=== PATIENT | male | born 1955 | race Caucasian/White ===

== ENCOUNTER 2023-12-03 21:26 | Inpatient (IN) | payer OTHER, MEDICARE, SELFPAY ==
[2023-12-03 17:52] VITALS: BP 134/94
[2023-12-03 18:12] VITALS: BMI 34.2
[2023-12-03 18:28] LABS: % Basophils 1.4 % (0-2); % Eosinophils 5.5 % (0-6); % Immature Granulocytes 0.4 % (0-0.5); % Lymphocytes 22.5 % (20.5-51.1); % Monocytes 9.3 % (1.7-9.3); % Neutrophils 60.9 % (42.2-75.2); Absolute Basophils 0.1 10^3/uL (0-0.2); Absolute Eosinophils 0.4 10^3/uL (0-0.7); Absolute Lymphocytes 1.8 10^3/uL (1.2-3.4); Absolute Monocytes 0.7 10^3/uL (0.1-0.6); Absolute Neutrophils 4.8 10^3/uL (1.4-6.5); Hematocrit 52.5 % (39.0-52.0); Hemoglobin 18.1 g/dL (13.0-18.0); Mean Corp Hgb Conc. 34.5 g/dL (33.0-37.0); Mean Corpuscular Hgb 27.5 pg (27.0-31.0); Mean Corpuscular Volume 79.8 fL (80.0-94.0); Mean Platelet Volume 8.5 fL (7.4-10.4); Nucleated Red Blood Cells % 0 % (-); Platelet Count 197 10^3/uL (130-400); Red Blood Cell Count 6.58 10^6/uL (4.70-6.10); Red Cell Dist. Width 13.3 % (11.5-14.5); White Blood Cell Count 7.9 10^3/uL (4.8-10.8)
[2023-12-03 18:41] LABS: ALT (SGPT) 41 U/L (0-50); AST (SGOT) 37 U/L (17-59); Albumin 4.7 g/dl (3.5-5.0); Alkaline Phosphatase 95 U/L (38-126); Blood Urea Nitrogen 30 mg/dl (9-20); Carbon Dioxide 22 mmol/L (22-30); Chloride 102 mmol/L (98-107); Estimated Creatinine Clearance 77 ml/min; Glucose 109 mg/dl (70-99); Potassium 4.3 mmol/L (3.5-5.1); Sodium 132 mmol/L (135-145); Total Bilirubin 1.3 mg/dl (0.2-1.3); Total Protein 7.6 g/dl (6.3-8.2); eGFR > 60.00
[2023-12-03 19:00] VITALS: BP 125/65
--- NOTE | 2023-12-03 19:39 | ED.GENMED ---
History of Present Illness
General
Chief Complaint: Visual Problem
Source: patient
Exam Limitations: none
Time Seen by Provider: 12/03/23 19:25
Travel History
Have you had any contact with someone who has COVID-19?: No
Do you have any symptoms of coronavirus? Fever > 100 degrees, chills, cough, shortness of breath, sore throat, loss of taste or smell, muscle aches, or headache?: No
History of Present Illness
History of Present Illness:
See MDM
Past History
Past History
ED Past Medical History: Asthma, Hypercholesterolemia and Other
ED Past Surgical History: Cardiac
Social History
Tobacco: Non-smoker
Alcohol: Former
Drug: None
Personal:
Phy Exam
Physical Exam
Physical Exam:
See MDM
Course
Orders/Labs/Results
Orders:
Orders
12/03/23 18:18
Electrocardiogram (*1) Urgent
Reason for Study: TIA/Stroke
12/03/23 18:19
EKG- Treatment ONCE
Complete Blood Count/With Diff Urgent
Comprehensive Metabolic Panel Urgent
12/03/23 19:38
CT Head W/o Iv Contrast Urgent
Comment:
Reason For Exam: intermittent double vision
Abnormal Lab Results
12/03/23
18:19
RBC 6.58 H 10^6/uL
(4.70-6.10)
Hgb 18.1 H g/dL
(13.0-18.0)
Hct 52.5 H %
(39.0-52.0)
MCV 79.8 L fL
(80.0-94.0)
Absolute Monos (auto) 0.7 H 10^3/uL
(0.1-0.6)
Sodium 132 L mmol/L
(135-145)
BUN 30 H mg/dl
(9-20)
Glucose 109 H mg/dl
(70-99)
12/03/23 18:19
12/03/23 18:19
Vital Signs
Initial and Last Documented VS:
Initial Vital Signs
Temp Pulse Resp BP Pulse Ox
98.2 F 69 20 134/94 95
12/03/23 17:52 12/03/23 17:52 12/03/23 17:52 12/03/23 17:52 12/03/23 17:52
Last Documented Vital Signs
Temp Pulse Resp BP Pulse Ox
98.2 F 69 20 134/94 95
12/03/23 17:52 12/03/23 17:52 12/03/23 17:52 12/03/23 17:52 12/03/23 17:52
MDM/Problems Addressed
Differential Diagnosis Includes:
HPI and MDM Narrative:
68-year-old male presenting for evaluation of intermittent double vision. He has had 3 episodes in the past 3 weeks. He blamed the first episode on eyestrain after reading. It lasted for approximately 30 seconds. He had another episode a few
weeks later where he saw quadruple for approximately 2 minutes. Patient was driving earlier today and he noted the double vision again. It appeared to be monocular. Everything was okay when he covers his left eye. When he covers his right eye,
there was a vertical displacement. This lasted longer, approximately 4 minutes. He is unsure if it is related but he is noticing left leg dragging as he walks. The left side of his leg feels numb. He is unsure if this is all related to diabetic
complications patient is concerned because his history of diabetes and prior open heart surgery. He talk to his residential roofer who suggested he go to the emergency department to be evaluated for TIA. Patient currently symptom-free. Pt took 4 baby
aspirins today
Given the double vision and his prior medical history, will obtain CT head and ultimately admit
Physical exam
General: Well appearing and non-toxic
HEENT: protecting airway. Pupils equal reactive. EOMI
Neck: supple
CV: No evidence of cyanosis. Regular rate and rhythm
Resp: No accessory muscle use
Abd: Non-distended
Extremities: No deformities. No leg edema. Sensation grossly intact
Neuro: alert
Psych: Normal affect
Skin: Intact
Problems Addressed including Acute and Chronic Conditions affecting care:
1. Diplopia
Acuity: acute
Prognosis: stable
Details: Given his past medical history, will obtain CT head and ultimately admit to rule out TIA. Patient is high risk
Updates
CT head negative. Given his intermittent symptoms and his past medical history, will admit
Differential Diagnosis (but not limited to): TIA, diabetic neuropathy
Testing considered: Brain MRI but will obtain CT head for
Drug therapy (if applicable): OTC meds, please see d/c instruction regarding Rx drugs
Amount and/or Complexity of Data Reviewed
Clinical info obtained from: Patient
External data reviewed: N/A
Labs I independently reviewed (but not limited to): White blood cell count normal
Radiology: The CT scan was personally and independently reviewed. In addition, official CT report reviewed.
Pulse Ox: not hypoxic
EKG independently reviewed: sinus rhythm, left axis, no STEMI
Mechanical Design Engineer Facilities: Sinus rhythm
Critical Care: N/A
Risk of Complication:
Social Determinants of health: Good social support
Discussed with other providers: Hospitalist
Escalation of Care includes Admit/Obs: Given the concern for rolling TIAs, will admit
Occasional wrong word or 'sound a like' substitutions may have occurred due to the inherent limitations of voice recognition software. Read the chart carefully and recognize, using context, where substitutions have occurred.
*Critical Care Note
Total Time (30-74mins, 75-104mins- exclusive of procedures): Not Applicable
ED Attending Note
-
Portions of this chart may have been created with voice recognition software.� Occasional wrong word or��sound alike� substitutions may have occurred due to the inherent limitations of voice recognition software.
Discharge Plan
Departure
Patient Disposition: Admit
Date of Disposition: 12/03/23
Time of Disposition: 20:27
Admit to: Telemetry
Presentation/result/management discussed w/ accepting MD/DO: Hospitalist
Discharge Problem:
Diplopia
Prescriptions:
No Action
atorvastatin 10 MG tablet
10 mg PO HS
tamsulosin 0.4 MG capsule
0.4 mg PO HS
montelukast 10 MG tablet
10 mg PO DAILY
metoprolol succinate 25 MG tablet extended release 24 hr
25 mg PO DAILY
dutasteride [Avodart] 0.5 MG capsule
0.5 mg PO HS
Jardiance 10 MG tablet
10 mg PO DAILY
metformin 500 mg tablet
500 mg PO BID
aspirin 81 mg Tablet,Delayed Release (Dr/Ec)
81 mg PO DAILY
diphenhydramine HCl [Benadryl] 25 mg Capsule
25 mg PO HS
hydroxychloroquine 200 mg tablet
200 mg PO BID
Spiriva Respimat 2.5 mcg/actuation mist
1 puff INHALATION R DAILY
Referrals:
NONE,* [Family Provider] -
Interventions
Interventions:
*Risk Screen - Suicide Last Done: 12/03/23 18:13
*General Assessment Last Done: 12/03/23 18:13
*Neglect/Abuse Screening Last Done: 12/03/23 18:13
ED- Neurological Assessment Last Done: 12/03/23 18:13
ED-EENT Assessment Last Done: 12/03/23 18:13
ED Swallowing Screen Last Done: 12/03/23 18:23
[2023-12-03 20:07] VITALS: BP 133/74
--- NOTE | 2023-12-03 20:32 | HPS.HSE ---
Addendum entered and electronically signed by Reese Leigh MD 12/03/23 21:54:
Patient seen and examined independently with ENVIRONMENTAL SERVICES PROJECT MANAGER.� 68-year-old male past medical history of cataracts, floaters, asthma, diabetes, hypercholesterolemia, aortic arch reconstruction/aortic valve replacement, eczema, nasal sarcoidosis presenting with
intermittent double vision/ 4x vision with both eyes open for the past week affecting more left eye.� She has also been having left foot drop and numbness in the past month.� Sometimes feels off balance.� Denies any headache.� Symptoms concerning
for TIA/subacute CVA.� CT head negative.� Continue aspirin.� Give dose of Plavix.� Check MRI/MRA head and neck.� Check A1c lipid panel.� Neurology consulted.
Original Note:
Family Physician
-
Family Physician: * NONE
Chief Complaint
-
double vision
History of Present Illness
68 year old with PMH for aortic stenosis, tricuspid valve insufficiency, peripheral neuropathy, melanoma, BPH, heart murmur, asthma, type 2 diabetes presented to us with double vision for 3 weeks. Last week he saw quadruple for approximately 2
minutes. Today he noted double vision. His right eye is better when closing left eye. When closing right eye he sees vertical displacement. For 1 month, he drags his left leg when turning left. He feels a little off balance when turning left.
His left side of the foot feels numb as well. Denied any headache, dizziness or syncopal episode. Patient denied fever, chills, chest pain, short of breath. Patient denied abdominal pain, nausea, vomiting, diarrhea. Patient denied dysuria
hematuria. He was noted to have generalized eczema.
Head CT with no acute findings. Admitting for further management
Medical History
Past Medical History
Past Medical History: Reports Other
Additional Past Medical History:
aortic stenosis, tricuspid valve insufficiency, peripheral neuropathy, melanoma, BPH, heart murmur, asthma, type 2 diabetes
Past Surgical History: Reports Other
Additional Past Surgical History:
Bilateral knee surgeries
Coronary artery bypass graft
Esophageal tumor removed
Social History
Tobacco: Non-smoker
Alcohol: Former
Drug: None
Personal:
Living: With Family
Employment: Retired
Family History
Family History: Not pertinent
Allergies / Home Medications
Allergies reflects when Allergies were last updated in [employer].
Home Medications with original date entered in [employer]
Allergy/Medication List:
Allergies
Allergy/AdvReac Type Severity Reaction Status Date / Time
amoxicillin Allergy Rash Verified 12/03/23 17:51
doxycycline Allergy Rash Verified 12/03/23 17:51
mold Allergy Unknown Verified 12/03/23 17:51
Home Medications
atorvastatin 10 mg tablet 10 mg PO HS 10/12/21
dutasteride 0.5 mg capsule (Avodart) 0.5 mg PO HS 10/12/21
empagliflozin 10 mg tablet (Jardiance) 10 mg PO DAILY 10/12/21
metoprolol succinate 25 mg tablet,extended release 24 hr 25 mg PO DAILY 10/12/21
montelukast 10 mg tablet 10 mg PO DAILY 10/12/21
tamsulosin 0.4 mg capsule 0.4 mg PO HS 10/12/21
aspirin 81 mg tablet,delayed release 81 mg PO DAILY 12/03/23
diphenhydramine HCl 25 mg capsule (Benadryl) 25 mg PO HS 12/03/23
hydroxychloroquine 200 mg tablet 200 mg PO BID 12/03/23
metformin 500 mg tablet 500 mg PO BID 12/03/23
tiotropium bromide 2.5 mcg/actuation mist for inhalation (Spiriva Respimat) 1 puff inhalation R DAILY 12/03/23
Review of Systems
-
Constitutional: Reports No Symptoms
EENT: Reports Other (Double vision)
Respiratory: Reports No Symptoms
Cardiac: Reports No Symptoms
Abdomen/GI: Reports No Symptoms
: Reports No Symptoms
Musculoskeletal: Reports No Symptoms
Skin: Reports Rash
Neurological: Reports Weakness and Numbness
Endocrine: Reports No Symptoms
Hematologic/Lymphatic: Reports No Symptoms
Psych: Reports No Symptoms
Physical Exam
Vital Signs
Vital Signs
Temp Pulse Resp BP Pulse Ox
98.2 F 69 20 134/94 95
12/03/23 17:52 12/03/23 17:52 12/03/23 17:52 12/03/23 17:52 12/03/23 17:52
Physical Exam
General: Well Developed, Well Nourished and No Apparent Distress
HEENT: NormoCephalic, Moist mucous membranes and Atraumatic
Respiratory: Clear
Cardiac: S1/S2 and Regular Rhythm; No Murmur or Rub
GI: Soft, Non Tender, Non Distended and Normal Bowel Sounds; No Organomegaly
Rectal: Deferred by Provider
Musculoskeletal: No Clubbing, No Cyanosis and No Edema
Skin: No Rash
Neuro: AO x 3 and Nonfocal/grossly intact
Psych: Calm
Laboratory Results
-
12/03/23 18:19
12/03/23 18:19
Laboratory Results
Total Bilirubin 1.3 mg/dl (0.2-1.3) 12/03/23 18:19
AST 37 U/L (17-59) 12/03/23 18:19
ALT 41 U/L (0-50) 12/03/23 18:19
Alkaline Phosphatase 95 U/L (38-126) 12/03/23 18:19
Data Reviewed
-
CT Scan: Report Reviewed by me
Lab Data: Labs Reviewed by me
Impression/Plan
-
#intermittent diplopia associated with left leg weakness/numbness
-head CT with No evidence of acute intracranial abnormality.
-Will obtain MRI, MRA
-Aspirin, statin
-Neuro checks
-Obtain A1c, lipid profile
-Neurology consulted
# History of BPH
-Dutasteride continued
-Flomax continued
# Type 2 diabetes
-Sliding scale
-Carb controlled diet
-Jardiance
-Hold metformin
# Essential hypertension
-Metoprolol continued
# History of asthma
-Not in acute exacerbation
-Singular continued
-Reviewed continued
#s/p aortic valve replacement
HXt of nasal sarcoidosis
#DVT prophylaxis
-SCD
# CODE STATUS
-Full code
[2023-12-03 21:00] VITALS: BP 149/76
--- NOTE | 2023-12-03 22:45 | PTCARENOTE ---
Pt arrived to floor via accompanied by son. Pt denied double vision at the time, and walked with a steady gate from WC to bed. Pt aox3, NIHS 1. Pt is very [place] but does well with his hearing in, which he has with him. Pt presents with a
generalized body rash/eczema flair. Pt oriented to room, call olsen at bedside. will review chart and follow plan of care.
[2023-12-03 23:09] VITALS: BMI 34.1
[2023-12-03 23:22] VITALS: BP 150/76
[2023-12-03 23:47] LABS: Glucose - Point of Care 112 mg/dl (70-99)
[2023-12-04] VITALS (8 sets, daily range): BP systolic 113–133; BP diastolic 66–78; PULSE 73–76; O2SAT 94
[2023-12-04] MEDS: PROSCAR 5 MG PO ×2 (00:13→19:57)
[2023-12-04] MEDS: LIPITOR 10 MG PO ×2 (00:14→19:57)
[2023-12-04] MEDS: BENADRYL 25 MG PO ×2 (00:14→19:56)
[2023-12-04] MEDS: FLOMAX 0.400000000000000022 MG PO ×2 (00:14→19:56)
[2023-12-04 06:57] LABS: Hematocrit 50.2 % (39.0-52.0); Hemoglobin 17.2 g/dL (13.0-18.0); Mean Corp Hgb Conc. 34.3 g/dL (33.0-37.0); Mean Corpuscular Hgb 27.5 pg (27.0-31.0); Mean Corpuscular Volume 80.2 fL (80.0-94.0); Platelet Count 189 10^3/uL (130-400); Red Blood Cell Count 6.26 10^6/uL (4.70-6.10); Red Cell Dist. Width 13.3 % (11.5-14.5); White Blood Cell Count 7.4 10^3/uL (4.8-10.8)
[2023-12-04 07:17] LABS: Blood Urea Nitrogen 24 mg/dl (9-20); Calcium 8.8 mg/dl (8.4-10.2); Carbon Dioxide 25 mmol/L (22-30); Chloride 102 mmol/L (98-107); Estimated Creatinine Clearance 84 ml/min; Glucose 142 mg/dl (70-99); HDL Cholesterol 33 mg/dl; LDL Cholesterol, Calculated 39 mg/dl; Potassium 4.4 mmol/L (3.5-5.1); Sodium 136 mmol/L (135-145); Total Cholesterol 114 mg/dl (50-199); Triglyceride 214 mg/dl (10-149); Very Low Density Lipoprotein 42 mg/dl (0-30); eGFR > 60.00
[2023-12-04 07:57] LABS: Glucose - Point of Care 132 mg/dl (70-99)
[2023-12-04] MEDS: TOPROL XL 25 MG PO (07:58)
[2023-12-04] MEDS: PLAQUENIL 200 MG PO ×2 (07:58→19:57)
[2023-12-04] MEDS: JARDIANCE 10 MG PO (07:58)
[2023-12-04] MEDS: ASPIR LOW (ENTERIC COATED) 81 MG PO (07:58)
[2023-12-04] MEDS: SINGULAIR 10 MG PO (07:58)
[2023-12-04] MEDS: SPIRIVA RESPIMAT 2.5 MCG 1 PUFF INH ×2 (08:09→17:46)
[2023-12-04 08:43] LABS: Glycohemoglobin (HgbA1c) 6.9 % (4.0-5.6)
--- NOTE | 2023-12-04 09:37 | CON.NEURO ---
Consultation
Order
Date of Consultation: 12/04/23
Reason for Consult: diplopia
CC: Double vision
HPI: This is a 68-year-old right-handed man who presented to [facility] on December 03, 2023 with diplopia. According to the patient he developed intermittent painless binocular diplopia mostly looking at a distance a month ago.
Skeu states that his symptoms are different from his usual 'optical migraine' characterized by visual distortion and the appearance of water running down a glass.
No reports of dysarthria, dysphagia, ptosis, sensory or motor deficits.
ER VS: 134/94, 77, afebrile
PDMP: None
EKG: NSR, QTc Int : 420 ms
Labs: RBCs�2. 58, hemoglobin�18.1, hematocrit�52.5, platelets�197, sodium�132, glucose�109, hemoglobin A1c�6.9, LDL�39,
CT head�no acute abnormalities, Mild by mild predominantly bifrontal atrophy
PMH: post op A-Fib, CAD, HTN, DLP, DM, obesity, BPH, melanoma, Esophageal tumor resection, JOE
PSH: CABG, meniscal repair, lipoma resection, skin biopsy, right vitrectomy, bilateral cataract extraction, umbilical Herniorrhaphy� �
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
FH: Not contributory to current presentation
All: Doxycycline, amoxicillin, Penicillin, Doxycycline
ROS:Constitutional: Negative. Negative for chills, fever and unexpected weight change.
HENT: Positive for chronic hearing impairment
Eyes: Negative. Negative for photophobia, pain and visual disturbance.
Respiratory: Negative for cough, choking and shortness of breath.
Cardiovascular: Negative for chest pain, palpitations and leg swelling.
Gastrointestinal: Negative for abdominal pain and vomiting.
Endocrine: Negative. Negative for cold intolerance.
Genitourinary: Negative for dysuria, flank pain and urgency.
Musculoskeletal: Negative for back pain, gait problem, neck pain and neck stiffness.
Skin: Negative for rash.
Allergic/Immunologic: Negative. Negative for immunocompromised state.
Neurological: Positive for left foot numbness, diplopia
Psychiatric/Behavioral: Negative for behavioral problems, confusion and hallucinations.
General: Well developed. In no acute distress.
Cardio: Regular rate and rhythm without murmur. Extremities are without cyanosis or edema.
Neuro:
Mental Status: Alert, oriented to person, place, and date. Normal attention and recall. Good fund of knowledge. Follows complex requests across the midline. Comprehension, naming, and repetition intact. Immediate and delayed recall 3/3.
Cranial Nerves: . Pupils are equally round, surgical. EOMs full. Visual garcia full to confrontation. No ptosis. No nystagmus. V1-V3 intact to light touch and pinprick bilaterally, symmetric. Face symmetric. Impaired hearing AU. The palate
elevated well. SCMs and traps 5/5. Tongue midline. No dysarthria.
Motor: Normal bulk and tone. No pronator or arm drift. Strength 5/5 throughout. No clonus.
Reflexes: Limited due to positioning
Coordination: No dysmetria or tremor.
Gait: deferred
Assessment and Plan:
I. Subacute acquired binocular horizontal diplopia. No evidence of eso or exotropia or sixth nerve palsy on neuro exam. Differential diagnosis includes disorders of muscle and restrictive syndromes (isolated weakness of lateral rectus muscle,
thyroid eye disease or less likely myasthenia gravis), central disorders (spasm of the near reflex, midbrain pseudo-sixth nerve palsy).
II. PA A-Fib on ASA?
III. 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
-Fall precautions
-Please check Mg panel, TFTs, ESR, CRP, [place], SPEP/IF, vit b12, B1
-Strict blood pressure and glycemic control
-Outpatient nerve conduction study/EMG with RNS
-Continue aspirin 81 mg once a day.
-Follow-up brain MRI results
I personally reviewed all radiology and labs along with past medical records pertinent to current medical problems. Total time spent in patient care is 60 minutes.
Thank you for allowing us to participate in the care of this patient. We will continue to follow. Please do not hesitate to contact us with any questions or concerns.
Subjective/Objective
Subjective Data
Date of Service: December 04, 2023
Objective Data
Vital Signs
Temp Pulse Resp BP Pulse Ox
36.4 C 75 14 122/68 95
12/04/23 07:00 12/04/23 08:14 12/04/23 08:14 12/04/23 07:00 12/04/23 08:14
Lab Results
12/04/23 06:38
12/04/23 06:38
Sodium 136 mmol/L (135-145) 12/04/23 06:38
Potassium 4.4 mmol/L (3.5-5.1) 12/04/23 06:38
BUN 24 mg/dl (9-20) H 12/04/23 06:38
Glucose 142 mg/dl (70-99) H 12/04/23 06:38
Calcium 8.8 mg/dl (8.4-10.2) 12/04/23 06:38
LDL Cholesterol, Calc 39 mg/dl 12/04/23 06:38
Patient Allergies
amoxicillin Allergy (Verified 12/03/23 17:51)
Rash
doxycycline Allergy (Verified 12/03/23 17:51)
Rash
mold Allergy (Verified 12/03/23 17:51)
Unknown
Medications
-
Active Medications
Generic Name Dose Route Start Last Admin
Trade Name Freq PRN Reason Stop Dose Admin
Acetaminophen 650 mg 12/03/23 22:37
Acetaminophen 650 Mg Rectal Suppository RECTAL 12/31/23 22:36
Q4HPRN PRN
CERVANTES, mild pain, or temp >100.4F
Acetaminophen 650 mg 12/03/23 22:37
Acetaminophen 325 Mg Tablet PO 12/31/23 22:36
Q4HPRN PRN
CERVANTES, mild pain, or temp >100.4F
Aspirin 81 mg 12/04/23 08:00 12/04/23 07:58
Aspirin 81 Mg (Enteric Coated) Tablet PO 01/01/24 07:59 81 mg
DAILY DEREK Administration
Atorvastatin Calcium 10 mg 12/03/23 22:37 12/04/23 00:14
Atorvastatin (Lipitor) 10 Mg Tablet PO 12/31/23 22:36 10 mg
HS DEREK Administration
Dextrose 12.5 grams 12/03/23 22:37
Dextrose 50% (0.5 Grams/Ml) 50 Ml Syringe IV 12/31/23 22:36
[id number] PRN
hypoglycemia
Protocol
Diphenhydramine HCl 25 mg 12/03/23 22:37 12/04/23 00:14
Diphenhydramine 25 Mg Capsule PO 12/31/23 22:36 25 mg
HS DEREK Administration
Empagliflozin 10 mg 12/04/23 08:00 12/04/23 07:58
Empagliflozin (Jardiance) 10 Mg Tablet PO 01/01/24 07:59 10 mg
DAILY DEREK Administration
Finasteride 5 mg 12/03/23 23:00 12/04/23 00:13
Finasteride 5 Mg Tablet PO 12/31/23 22:59 5 mg
HS DEREK Administration
Glucagon 1 mg 12/03/23 22:37
Glucagon 1 Mg Vial IM 12/31/23 22:36
PRN PRN
hypoglycemia
Protocol
Hydroxychloroquine Sulfate 200 mg 12/04/23 08:00 12/04/23 07:58
Hydroxychloroquine 200 Mg Tablet PO 01/01/24 07:59 200 mg
BID DEREK Administration
Insulin Aspart 0 units 12/04/23 07:30 12/04/23 07:56
Insulin Aspart Low Resistance 300 Units/3 Ml Pen.Injctr SC 01/01/24 07:29 Not Given
AC DEREK
Protocol
Metoprolol Succinate 25 mg 12/04/23 08:00 12/04/23 07:58
Metoprolol 25 Mg Extended Release Tablet PO 01/01/24 07:59 25 mg
DAILY DEREK Administration
Montelukast Sodium 10 mg 12/04/23 08:00 12/04/23 07:58
Montelukast Sodium 10 Mg Tablet PO 01/01/24 07:59 10 mg
DAILY DEREK Administration
Sodium Chloride 0 flush 12/03/23 23:00
Sodium Chloride 0.9% (Flush) Syringe IV 12/31/23 22:59
PER PROTOCOL DEREK
Tamsulosin HCl 0.4 mg 12/03/23 22:37 12/04/23 00:14
Tamsulosin 0.4 Mg Capsule PO 12/31/23 22:36 0.4 mg
HS DEREK Administration
Tiotropium [place] 1 puff 12/04/23 08:00 12/04/23 08:09
Tiotropium (Spiriva Respimat) 2.5 Mcg Inhaler INH 01/01/24 07:59 1 puff
R DAILY DEREK Administration
Protocol
Home Medications
Medication Instructions Recorded
atorvastatin 10 mg tablet 10 mg PO HS 10/12/21
dutasteride 0.5 mg capsule 0.5 mg PO HS 10/12/21
(Avodart)
empagliflozin 10 mg tablet 10 mg PO DAILY 10/12/21
(Jardiance)
metoprolol succinate 25 mg 25 mg PO DAILY 10/12/21
tablet,extended release 24 hr
montelukast 10 mg tablet 10 mg PO DAILY 10/12/21
tamsulosin 0.4 mg capsule 0.4 mg PO HS 10/12/21
aspirin 81 mg tablet,delayed 81 mg PO DAILY 12/03/23
release
diphenhydramine HCl 25 mg capsule 25 mg PO HS 12/03/23
(Benadryl)
hydroxychloroquine 200 mg tablet 200 mg PO BID 12/03/23
metformin 500 mg tablet 500 mg PO BID 12/03/23
tiotropium bromide 2.5 1 puff inhalation R DAILY 12/03/23
mcg/actuation mist for inhalation
(Spiriva Respimat)
Vital Signs and Labs
-
Vital Signs and Labs:
Vital Signs
Temp Pulse Resp BP Pulse Ox
36.4 C 75 14 122/68 95
12/04/23 07:00 12/04/23 08:14 12/04/23 08:14 12/04/23 07:00 12/04/23 08:14
Lab Results
12/04/23 06:38
12/04/23 06:38
Sodium 136 mmol/L (135-145) 12/04/23 06:38
Potassium 4.4 mmol/L (3.5-5.1) 12/04/23 06:38
BUN 24 mg/dl (9-20) H 12/04/23 06:38
Glucose 142 mg/dl (70-99) H 12/04/23 06:38
Calcium 8.8 mg/dl (8.4-10.2) 12/04/23 06:38
LDL Cholesterol, Calc 39 mg/dl 12/04/23 06:38
Home Medications
-
Home Medications
atorvastatin 10 mg tablet 10 mg PO HS High Cholesterol 10/12/21
dutasteride 0.5 mg capsule (Avodart) 0.5 mg PO HS Urinary Issue 10/12/21
empagliflozin 10 mg tablet (Jardiance) 10 mg PO DAILY Diabetes 10/12/21
metoprolol succinate 25 mg tablet,extended release 24 hr 25 mg PO DAILY Blood Pressure 10/12/21
montelukast 10 mg tablet 10 mg PO DAILY Allergies 10/12/21
tamsulosin 0.4 mg capsule 0.4 mg PO HS Urinary Issue 10/12/21
aspirin 81 mg tablet,delayed release 81 mg PO DAILY Blood Clot Prevention/Tx 12/03/23
diphenhydramine HCl 25 mg capsule (Benadryl) 25 mg PO HS Allergies 12/03/23
hydroxychloroquine 200 mg tablet 200 mg PO BID Rheumatoud arthritis 12/03/23
metformin 500 mg tablet 500 mg PO BID Diabetes 12/03/23
tiotropium bromide 2.5 mcg/actuation mist for inhalation (Spiriva Respimat) 1 puff inhalation R DAILY asthma/COPD 12/03/23
Medications
-
Medications:
Generic Name Dose Route Start Last Admin
Trade Name Freq PRN Reason Stop Dose Admin
Acetaminophen 650 mg 12/03/23 22:37
Acetaminophen 650 Mg Rectal Suppository RECTAL 12/31/23 22:36
Q4HPRN PRN
CERVANTES, mild pain, or temp >100.4F
Acetaminophen 650 mg 12/03/23 22:37
Acetaminophen 325 Mg Tablet PO 12/31/23 22:36
Q4HPRN PRN
CERVANTES, mild pain, or temp >100.4F
Aspirin 81 mg 12/04/23 08:00 12/04/23 07:58
Aspirin 81 Mg (Enteric Coated) Tablet PO 01/01/24 07:59 81 mg
DAILY DEREK Administration
Atorvastatin Calcium 10 mg 12/03/23 22:37 12/04/23 00:14
Atorvastatin (Lipitor) 10 Mg Tablet PO 12/31/23 22:36 10 mg
HS DEREK Administration
Dextrose 12.5 grams 12/03/23 22:37
Dextrose 50% (0.5 Grams/Ml) 50 Ml Syringe IV 12/31/23 22:36
[id number] PRN
hypoglycemia
Protocol
Diphenhydramine HCl 25 mg 12/03/23 22:37 12/04/23 00:14
Diphenhydramine 25 Mg Capsule PO 12/31/23 22:36 25 mg
HS DEREK Administration
Empagliflozin 10 mg 12/04/23 08:00 12/04/23 07:58
Empagliflozin (Jardiance) 10 Mg Tablet PO 01/01/24 07:59 10 mg
DAILY DEREK Administration
Finasteride 5 mg 12/03/23 23:00 12/04/23 00:13
Finasteride 5 Mg Tablet PO 12/31/23 22:59 5 mg
HS DEREK Administration
Glucagon 1 mg 12/03/23 22:37
Glucagon 1 Mg Vial IM 12/31/23 22:36
PRN PRN
hypoglycemia
Protocol
Hydroxychloroquine Sulfate 200 mg 12/04/23 08:00 12/04/23 07:58
Hydroxychloroquine 200 Mg Tablet PO 01/01/24 07:59 200 mg
BID DEREK Administration
Insulin Aspart 0 units 12/04/23 07:30 12/04/23 07:56
Insulin Aspart Low Resistance 300 Units/3 Ml Pen.Injctr SC 01/01/24 07:29 Not Given
AC DEREK
Protocol
Metoprolol Succinate 25 mg 12/04/23 08:00 12/04/23 07:58
Metoprolol 25 Mg Extended Release Tablet PO 01/01/24 07:59 25 mg
DAILY DEREK Administration
Montelukast Sodium 10 mg 12/04/23 08:00 12/04/23 07:58
Montelukast Sodium 10 Mg Tablet PO 01/01/24 07:59 10 mg
DAILY DEREK Administration
Sodium Chloride 0 flush 12/03/23 23:00
Sodium Chloride 0.9% (Flush) Syringe IV 12/31/23 22:59
PER PROTOCOL DEREK
Tamsulosin HCl 0.4 mg 12/03/23 22:37 12/04/23 00:14
Tamsulosin 0.4 Mg Capsule PO 12/31/23 22:36 0.4 mg
HS DEREK Administration
Tiotropium [place] 1 puff 12/04/23 08:00 12/04/23 08:09
Tiotropium (Spiriva Respimat) 2.5 Mcg Inhaler INH 01/01/24 07:59 1 puff
R DAILY DEREK Administration
Protocol
--- NOTE | 2023-12-04 10:07 | W.PN.HOSP.TC ---
Today's Communication/Plan
-
f/u MRI brain/MRA h&n
f/u anti-ach ab
Assessment / Plan
Assessment / Plan
1. Intermittent diplopia
-head CT with No evidence of acute intracranial abnormality.
-pending MRI brain/MRA h&n
-on Aspirin, statin
-Neuro checks
-Hbga1c 6.9, LDL 39 TG 214 HDL 33
-Neurology evaluating
-[place] differential of ocular MG vs TIA
2. History of BPH
-Dutasteride continued
-Flomax continued
3. NIDDM
- maintain on ISS
- continue carb controlled diet
- metformin on hold
4. Essential hypertension
-Metoprolol continued
5. History of asthma
-Not in acute exacerbation
-Singular continued
-Reviewed continued
s/p aortic valve replacement
h/o aortic arch repair
Post op parox afib - never on AC
HXt of nasal sarcoidosis
DVT prophylaxis- SCD
CODE STATUS -Full code
Anticipated Discharge: Within 24 hours
Subjective/Interval History
-
Date of Service: December 04, 2023
complains of episodic diplopia, not happening currently
no other neurological deficits
Objective Data
-
Labs:
Laboratory Results
12/04/23
06:38
WBC 7.4
Hgb 17.2
Hct 50.2
Plt Count 189
Sodium 136
Potassium 4.4
Chloride 102
Carbon Dioxide 25
BUN 24 H
Creatinine 1.0
Glucose 142 H
Calcium 8.8
Vital Signs:
Vital Signs
Temp Pulse Resp BP Pulse Ox
97.5 F 75 14 122/68 95
12/04/23 07:00 12/04/23 08:14 12/04/23 08:14 12/04/23 07:00 12/04/23 08:14
I&O
12/03/23 12/04/23 12/05/23
06:59 06:59 06:59
Intake Total 480 / 480
Balance 480 / 480
Review of Systems
-
Respiratory: Reports No Symptoms
Cardiac: Reports No Symptoms
Abdomen/GI: Reports No Symptoms
Physical Exam
-
General: Comfortable
HEENT: Negative Oxygen
Respiratory: Clear to Auscultation
Cardiac: Regular Rhythm and S1/S2; Negative Murmur or Rub
GI: Soft, Nontender and Nondistended
Musculoskeletal: No Edema
Neuro: Awake, Alert, Oriented, No Motor Deficits and Nonfocal/Grossly Intact
Psych: Calm
--- NOTE | 2023-12-04 10:25 | PTOTSP ---
ST Acute Care Evaluation
Pt presents with oropharyngeal parameters that are WFL for safe PO intake of all consistencies. No skilled dysphagia services warranted at this time.
Pt self-reports some new short-term cognitive deficits. Pt would benefit from a cognitive linguistic evaluation, as able.
Recommendations:
- Continue with regular solids, thin liquids, meds as tolerated.
- General aspiration precautions.
- CERTIFIED PERSONAL CHEF to complete cognitive linguistic evaluation, as able.
[2023-12-04 12:24] LABS: Erythrocyte Sed Rate 1 mm/hour (0-20)
[2023-12-04 12:44] LABS: TSH Reflex To Free T4 1.58 uIU/ml (0.47-4.68)
[2023-12-04 13:03] LABS: Vitamin B12 290 pg/ml (239-931)
[2023-12-04 13:47] LABS: Glucose - Point of Care 113 mg/dl (70-99)
[2023-12-04 17:25] LABS: Glucose - Point of Care 102 mg/dl (70-99)
[2023-12-05 06:02] LABS: Hematocrit 54.2 % (39.0-52.0); Hemoglobin 17.9 g/dL (13.0-18.0); Mean Corpuscular Hgb 27.2 pg (27.0-31.0); Mean Corpuscular Volume 82.5 fL (80.0-94.0); Mean Platelet Volume 8.8 fL (7.4-10.4); Platelet Count 187 10^3/uL (130-400); Red Blood Cell Count 6.57 10^6/uL (4.70-6.10); Red Cell Dist. Width 13.5 % (11.5-14.5); White Blood Cell Count 7.8 10^3/uL (4.8-10.8)
[2023-12-05 06:25] LABS: Blood Urea Nitrogen 21 mg/dl (9-20); Calcium 9.1 mg/dl (8.4-10.2); Carbon Dioxide 25 mmol/L (22-30); Chloride 102 mmol/L (98-107); Estimated Creatinine Clearance 84 ml/min; Glucose 130 mg/dl (70-99); Potassium 4.3 mmol/L (3.5-5.1); Sodium 136 mmol/L (135-145); eGFR > 60.00
[2023-12-05 07:00] VITALS: BP 136/71
[2023-12-05 07:47] LABS: Glucose - Point of Care 120 mg/dl (70-99)
[2023-12-05] MEDS: JARDIANCE 10 MG PO (07:54)
[2023-12-05] MEDS: TOPROL XL 25 MG PO (07:54)
[2023-12-05] MEDS: PLAQUENIL 200 MG PO (07:54)
[2023-12-05] MEDS: SINGULAIR 10 MG PO (07:54)
[2023-12-05] MEDS: ASPIR LOW (ENTERIC COATED) 81 MG PO (07:54)
--- NOTE | 2023-12-05 09:31 | W.PN.HOSP.TC ---
Today's Communication/Plan
-
d/c home
Assessment / Plan
Assessment / Plan
1. Intermittent diplopia
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
-head CT with No evidence of acute intracranial abnormality.
-MRI brain and MRA h&n negative.
-on Aspirin, statin
-Neuro checks
-Hbga1c 6.9, LDL 39 TG 214 HDL 33
-Neurology evaluated
-Discussed with neurology, f/u in office to discuss pending immunology test
-patient to be provided empiric mestinon therapy
2. History of BPH
-Dutasteride continued
-Flomax continued
3. NIDDM
- maintain on ISS
- continue carb controlled diet
- metformin on hold
4. Essential hypertension
-Metoprolol continued
5. History of asthma
-Not in acute exacerbation
-Singular continued
-Reviewed continued
s/p aortic valve replacement
h/o aortic arch repair
Post op parox afib - never on AC
HXt of nasal sarcoidosis
DVT prophylaxis- SCD
CODE STATUS -Full code
More than 30 minutes spent in discharge including
Final examination of the patient
Summarizing hospital stay
Instructions for continuing care to all relevant caregivers
Preparation of discharge records, prescriptions, and referral forms
Total time spent (in minutes): 43 mins
Anticipated Discharge: Today
Subjective/Interval History
-
Date of Service: December 05, 2023
no further episode overnight
no new complains
Objective Data
-
Labs:
Laboratory Results
12/05/23
05:42
WBC 7.8
Hgb 17.9
Hct 54.2 H
Plt Count 187
Sodium 136
Potassium 4.3
Chloride 102
Carbon Dioxide 25
BUN 21 H
Creatinine 1.0
Glucose 130 H
Calcium 9.1
Vital Signs:
Vital Signs
Temp Pulse Resp BP Pulse Ox
97.7 F 73 16 136/71 96
12/05/23 07:00 12/05/23 07:00 12/05/23 07:00 12/05/23 07:00 12/05/23 07:00
I&O
12/04/23 12/05/23 12/06/23
06:59 06:59 06:59
Intake Total 480 / 480 1200 / 1200
Balance 480 / 480 1200 / 1200
Review of Systems
-
Respiratory: Reports No Symptoms
Cardiac: Reports No Symptoms
Abdomen/GI: Reports No Symptoms
Physical Exam
-
General: Conversant and Obese
HEENT: Negative Oxygen
Neuro: Awake, Alert, Oriented and No Motor Deficits
[2023-12-05 11:00] VITALS: BP 154/76
--- NOTE | 2023-12-05 11:01 | CM ---
CM met with pt bedside and noted dc order
Pt resides with his spouse in a 2SH with 8 EDUAR and full flight to 2nd floor
Pt is independent with his ADLs
Denies use of DMEs
All of pt's medical care is through [facility] including his PCP
PCP- Trev De La Fuente through [facility]
Rx- [facility]
Plan for outpt PT/OT
Script requested
Pt's pharmacy closed on weekends
TT/Dr Angeles requesting script script sent to [facility] instead
Discharge Disposition- home with outpatient PT/OT
Plans for drive self home
--- NOTE | 2023-12-05 11:28 | W.PN.NEURO.1 ---
Today's Communication / Plan
-
.
Subjective/Objective
Subjective Data
Date of Service: December 05, 2023
Mr. Spicer has had no recurrent diplopia since admission. Brain MRI/MRA showed chronic left midbrain hypodensity. No hemodynamically significant stenosis.
No reports of dysarthria, dysphagia, ptosis, sensory or motor deficits.
Vit B12-290, TSH-normal.
�
PMH: post op A-Fib, CAD, HTN, DLP, DM, obesity, BPH, melanoma, Esophageal tumor resection, JOE
PSH: CABG, meniscal repair, lipoma resection, skin biopsy, right vitrectomy, bilateral cataract extraction, umbilical Herniorrhaphy� �
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
FH: Mother�ALS
All: Doxycycline, amoxicillin, Penicillin, Doxycycline
ROS:Constitutional: Negative. Negative for chills, fever and unexpected weight change.
HENT: Positive for chronic hearing impairment
Eyes: Negative. Negative for photophobia, pain and visual disturbance.
Respiratory: Negative for cough, choking and shortness of breath.
Cardiovascular: Negative for chest pain, palpitations and leg swelling.
Gastrointestinal: Negative for abdominal pain and vomiting.
Endocrine: Negative. Negative for cold intolerance.
Genitourinary: Negative for dysuria, flank pain and urgency.
Musculoskeletal: Negative for back pain, gait problem, neck pain and neck stiffness.
Skin: Negative for rash.
Allergic/Immunologic: Negative. Negative for immunocompromised state.
Neurological: Positive for left foot numbness, intermittent diplopia, change in memory
Psychiatric/Behavioral: Negative for behavioral problems, confusion and hallucinations.
�
�
General: Well developed. In no acute distress.
Cardio: Regular rate and rhythm without murmur. Extremities are without cyanosis or edema.
Neuro:
Mental Status: Alert, oriented to person, place, and date.� Normal attention and recall.� Good fund of knowledge. Follows complex requests across the midline.� Comprehension, naming, and repetition intact.� Immediate and delayed recall 3/3.
Cranial Nerves: . Pupils are equally round, surgical.� EOMs full.� Visual garcia full to confrontation.� No ptosis.� No nystagmus.� V1-V3 intact to light touch and pinprick bilaterally, symmetric.� Face symmetric.� Impaired hearing AU.� The palate
elevated well.� SCMs and traps 5/5.� Tongue midline.� No dysarthria.
Motor:� � � � Normal bulk and tone.� No pronator or arm drift.� Strength 5/5 throughout. No clonus.
Reflexes: � � � � � 0/2
Sensory: Absent vibration at the toes and ankles
Coordination: No dysmetria or tremor.�
Gait: � � � � � deferred
Assessment and Plan:
�
�
I. Subacute acquired binocular horizontal diplopia. L midbrain hypodencity. Midbrain pseudo-sixth nerve palsy?
II. PA A-Fib on ASA?
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
IV. Family history of ALS
-Please follow up MG panel, SPEP/IF, B1
-Start cyanocobalamin 1000 mcg once a day
-ASA 81mg QD
-Outpatient neuro-ophthalmology evaluate
-Mestinon 30 mg 3 times daily with titration to 60 mg 3 times daily as tolerated if diplopia returns
-Outpatient nerve conduction study/EMG with RNS/neuropsychological evaluation
-Outpatient neurology follow-up in 2-3 weeks
�
I personally reviewed all radiology and labs along with past medical records pertinent to current medical problems. Total time spent in patient care is 35 minutes.
�
Thank you for allowing us to participate in the care of this patient. Please do not hesitate to contact us with any questions or concers
Objective Data
Vital Signs
Temp Pulse Resp BP Pulse Ox
36.5 C 73 16 136/71 96
12/05/23 07:00 12/05/23 07:00 12/05/23 07:00 12/05/23 07:00 12/05/23 07:00
Lab Results
12/05/23 05:42
12/05/23 05:42
Sodium 136 mmol/L (135-145) 12/05/23 05:42
Potassium 4.3 mmol/L (3.5-5.1) 12/05/23 05:42
BUN 21 mg/dl (9-20) H 12/05/23 05:42
Glucose 130 mg/dl (70-99) H 12/05/23 05:42
Calcium 9.1 mg/dl (8.4-10.2) 12/05/23 05:42
LDL Cholesterol, Calc 39 mg/dl 12/04/23 06:38
Vitamin B12 290 pg/ml (239-931) 12/04/23 11:50
Patient Allergies
amoxicillin Allergy (Verified 12/03/23 17:51)
Rash
doxycycline Allergy (Verified 12/03/23 17:51)
Rash
mold Allergy (Verified 12/03/23 17:51)
Unknown
[2023-12-05 11:39] LABS: Glucose - Point of Care 113 mg/dl (70-99)
--- NOTE | 2023-12-05 12:57 | W.DCSUMMARY ---
Discharge Summary
Discharge Data
Date of Admission: 12/03/23
Date of Discharge: 12/05/23
-
Pending Results: No
Hospital Course
Discharging Physician : Dr Mukund Angeles
Disposition : To home
Primary care physician : Unknown
Principal Discharge diagnosis :
Intermittent diplopia
Chronic Discharge diagnosis :
Benign prostatic hyperplasia
Xxs-gjzakzh-pdsvidddb diabetes mellitus
Essential hypertension
History of asthma
History of aortic valve replacement
History of aortic arch repair
Postoperative paroxysmal atrial fibrillation
History of nasal sarcoidosis
Hospital Course :
Patient is a 68-year-old male with above-mentioned past medical history came to ER with having episodic diplopia. Symptoms has been occurring intermittently for the last 1 month and patient denied of having any change in visual acuity. No other
associated neurological complaints. Patient was admitted for further evaluation by neurology. CT head done in ER was negative for acute abnormality. Follow-up MRI brain and MRA head and neck did not show any CVA or any vasculopathy. Neurology
suspected potential differential of ocular migraine and test for acetylcholine antibody receptor has been sent. Other potential differential of 6th nerve palsy was also considered. Patient was provided trial course of Mestinon discharge. Patient
to follow-up with neurology in office for further workup.
Important imaging findings :
None
Procedure findings :
None
Discharge Plan
-
Patient Disposition: Home (Routine Discharge)
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
Condition: Fair
Diet: Regular
Activity: As tolerated
Driving Restrictions: As prior to admission
Bathing Restrictions: OK to Shower
Activity Restrictions/Additional Instructions:
Please call for a new patient appointment with Neurology office - Dr Mancilla OR neurologist of your preference.
Referrals:
NONE,* [Family Provider] -
Mali Mancilla, [Active] -
Prescriptions:
New
pyridostigmine bromide [Mestinon] 60 mg tablet
30 mg PO TID Qty: 90 0RF
Continued
atorvastatin 10 MG tablet
10 mg PO HS
tamsulosin 0.4 MG capsule
0.4 mg PO HS
montelukast 10 MG tablet
10 mg PO DAILY
metoprolol succinate 25 MG tablet extended release 24 hr
25 mg PO DAILY
dutasteride [Avodart] 0.5 MG capsule
0.5 mg PO HS
Jardiance 10 MG tablet
10 mg PO DAILY
metformin 500 mg tablet
500 mg PO BID
aspirin 81 mg Tablet,Delayed Release (Dr/Ec)
81 mg PO DAILY
diphenhydramine HCl [Benadryl] 25 mg Capsule
25 mg PO HS
hydroxychloroquine 200 mg tablet
200 mg PO BID
Spiriva Respimat 2.5 mcg/actuation mist
1 puff INHALATION R DAILY
Discharge Orders:
Discharge Patient (As Directed); Ordered 12/05/23
Ordered By: Mukund Angeles
Discharge Date and Time
Discharge Date/Time: 12/05/23 12:01
[2023-12-07 09:18] LABS: Albumin 3.87 g/dL (3.75-5.01); Alpha 1 Globulin 0.22 g/dL (0.19-0.46); Alpha 2 Globulin 0.75 g/dL (0.48-1.05); SPEP IFE Reflex Not Done; Total Protein-Electrophoresis 6.6 g/dL (6.3-8.2)
[2023-12-08 08:09] LABS: CRP, Highly Sensitive 1.33 mg/L
[2023-12-09 13:57] LABS: Vitamin B1, Whole Blood 164 nmol/L (70-180)
== END 2023-12-05 12:01 | disposition home or self-care (01) | DRG 123 ==
LOC: 3 WEST ACU 21:26
PROVIDERS: Emergency Medicine; Registered Nurse; ADMITTING PHYSICIAN Hospitalist; ATTENDING PHYSICIAN Hospitalist; CONSULT PHYSICIAN Psychiatry & Neurology Neurology; EMERGENCY PHYSICIAN Student in an Organized Health Care Education/Training Program
DX: H53.2 Diplopia (principal); E11.40 Type 2 diabetes mellitus with diabetic neuropathy, unspecified; I10 Essential (primary) hypertension; Z95.2 Presence of prosthetic heart valve; N40.0 Benign prostatic hyperplasia without lower urinary tract symptoms; I48.0 Paroxysmal atrial fibrillation; Z79.82 Long term (current) use of aspirin
CPT/HCPCS: 70450; 70544; 70548; 70551; 80048; 80053; 80061; 82607; 82962; 83036; 84155; 84165; 84425; 84443; 85025; 85027; 85652; 86041; 86141; 92610; 93005; 94640; 97162; 97165; 99285